=== PATIENT | female | born 1970 | race Two or more races ===

== ENCOUNTER → 2025-04-03 | Outpatient (CLI) | payer OTHER, SELFPAY ==
--- NOTE | 2025-04-03 08:00 | XR_ITS ---
Examination: MRI cervical spine without intravenous contrast Date and time of exam: April 03, 2025, 0851 hours Comparison May 17, 2013 INDICATIONS: Neck pain radiating to both shoulders beginning 7 years ago Technique: Multiple axial and sagittal sections of the cervical spine to been obtained. T2 weighted sagittal sections, TR 3, 270, TE 117 T1-weighted sagittal sections, TR 500, TE 11 T1-weighted axial sections, TR 607, TE 12, axial sections TR 18, TE 27 and T2 weighted transverse sections, TR 3920, TE 122. Findings: Adequate alignment cervical vertebral bodies No cervical fracture Intact odontoid Diffuse cervical disc degeneration Mild increased signal in the cervical cord no syrinx cavity C2-C3 no disc protrusion C3-C4 no disc protrusion C4-C5 moderate bilateral neural foraminal stenosis C5-C6 moderate bilateral neural foraminal stenosis C6-C7 moderate left neural foraminal stenosis C7-T1 moderate bilateral neural foraminal stenosis IMPRESSION: No cervical fracture C4-C5, C5-C6, C7-T1 moderate bilateral neural foraminal stenosis C6-C7 moderate left neural foraminal stenosis
--- NOTE | 2025-04-03 08:30 | XR_ITS ---
Examination: MRI lumbar spine without contrast Date and time of exam: April 03, 2025, 0911 hours Comparison August 01, 2017 INDICATIONS: Lower back pain 7 years, lower back surgery 2014, 2017 Technique: Multiple MRI axial and sagittal sections lumbar spine. Sagittal T2-weighted images, TR 3500, TE 118 T1 weighted transverse sections, TR 688 T8.5, T2-weighted sagittal sections T1 weighted sagittal sections TR 621, TE 30 T2 axial sections, TR 4, 190, TE 84. Findings: Transpedicular lumbar fusion L4-L5 with anatomic alignment Advanced disc narrowing L5-S1, moderate disc narrowing L3-L4 No lumbar fracture L5-S1 4 mm central 6 mm left foraminal disc bulge producing mild left L5 ganglionic compression L4-L5 no disc protrusion L3-L4 4 mm central lumbar disc bulge L2-L3 no disc protrusion L1-L2 no disc protrusion IMPRESSION: Lumbar fusion L4-L5 with anatomic alignment Advanced degenerative disc disease L5-S1 L5-S1 4 mm central 6 mm left foraminal disc bulge producing mild left L5 ganglionic compression L3-L4 4 mm central lumbar disc bulge
== END | disposition home or self-care (01) ==
LOC: SMRI 07:51
PROVIDERS: PCP Family Medicine
DX: M48.02 Spinal stenosis, cervical region (principal); M48.03 Spinal stenosis, cervicothoracic region; M51.370 Other intervertebral disc degeneration, lumbosacral region with discogenic back pain only; G95.20 Unspecified cord compression; M51.360 Other intervertebral disc degeneration, lumbar region with discogenic back pain only
CPT/HCPCS: 72141; 72148

== ENCOUNTER → 2025-05-04 | Outpatient (CLI) | payer OTHER, SELFPAY ==
--- NOTE | 2025-05-04 16:15 | XR_ITS ---
Exam: MRI knee without contrast, right Date and time of exam: May 04, 2025, 1757 hours, comparison 07/01/2018 INDICATIONS: History right knee pain years, osteoarthritis 10 years, history mediolateral meniscus tears on MRI 20 07/01/2018 Technique: Multiple axial, coronal, and sagittal sections on the knee have been obtained. T2-Weighted sagittal, fat-suppressed images, TR 3,500, TE 62, T2 weighted coronal fat-saturated images, TR 3,500, TE 62 Proton density sagittal sections, TR 1800, TE 31. T-1 weighted coronal images, TR 524, TE 13.0 Findings: Medial meniscus anterior horn truncation inner margin. Medial meniscus, body truncation inner margin. Posterior horn medial meniscus truncation inner margin. Lateral meniscus anterior horn is intact Lateral meniscus, body small oblique tear communicating inferior articular surface near the inner margin, coronal image 14 Posterior horn lateral meniscus truncation inner margin Anterior cruciate ligament severely attenuated Posterior cruciate ligament appears intact. Knee effusion is small. Quadriceps and patellar tendons appear intact. There is no evidence of tendinosis. Inflammatory change or fracture of Hoffa's fat pad is not seen. Medial patellar facet demonstrates mild thinning. Lateral patellar facet cartilage demonstrates mild thinning. Trochlear cartilage demonstrates mild thinning. Marrow signal adequate. Medial collateral ligament appears intact. No meniscocapsular separation is seen. Illiotibial band and fibular collateral ligament are intact. Biceps femoris tendons appear intact. Medial femoral condylar articular cartilage demonstrates moderate thinning. Lateral femoral condylar articular cartilage demonstratesmoderate thinning. Tibial plateau cartilage demonstrates moderate thinning. Impression: Oblique linear tear body lateral meniscus Truncation of the menisci which may relate to prior meniscectomies clinical correlation advised Severe attenuation anterior cruciate ligament
--- NOTE | 2025-05-04 16:45 | XR_ITS ---
Exam: MRI knee without contrast, left Date and time of exam: May 04, 2025 1815 hours INDICATIONS: Medial knee pain and swelling 5 years Technique: Multiple axial, coronal, and sagittal sections on the knee have been obtained. T2-Weighted sagittal, fat-suppressed images, TR 3,500, TE 62, T2 weighted coronal fat-saturated images, TR 3,500, TE 62 Proton density sagittal sections, TR 1800, TE 31. T-1 weighted coronal images, TR 524, TE 13.0 Findings: Medial meniscus anterior horn intact. Medial meniscus, body intact. Posterior horn medial meniscus intact. Lateral meniscus anterior horn is intact Lateral meniscus, body is intact Posterior horn lateral meniscus is intact Anterior cruciate ligament high-grade sprain Posterior cruciate ligament appears intact. Knee effusion is small. Quadriceps and patellar tendons appear intact. There is no evidence of tendinosis. Inflammatory change or fracture of Hoffa's fat pad is not seen. Medial patellar facet demonstrates no thinning. Lateral patellar facet cartilage demonstrates no thinning. Trochlear cartilage demonstrates no thinning. Marrow signal adequate. Medial collateral ligament appears intact. No meniscocapsular separation is seen. Illiotibial band and fibular collateral ligament are intact. Biceps femoris tendons appear intact. Medial femoral condylar articular cartilage demonstrates moderate thinning. Lateral femoral condylar articular cartilage demonstratesmoderate thinning. Tibial plateau cartilage demonstrates moderate thinning. Impression: High-grade sprain/attenuation anterior cruciate ligament
== END | disposition home or self-care (01) ==
LOC: SMRI 16:53
DX: S83.281A Other tear of lateral meniscus, current injury, right knee, initial encounter (principal); S83.512A Sprain of anterior cruciate ligament of left knee, initial encounter; X58.XXXA Exposure to other specified factors, initial encounter
CPT/HCPCS: 73718

== ENCOUNTER → 2025-05-08 | Outpatient (CLI) | payer OTHER, SELFPAY ==
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
== END | disposition home or self-care (01) ==
LOC: SMRI 07:24
PROVIDERS: PCP Family Medicine
DX: M72.2 Plantar fascial fibromatosis (principal); M67.873 Other specified disorders of tendon, right ankle and foot; M24.271 Disorder of ligament, right ankle
CPT/HCPCS: 73721